=== PATIENT | male | born 1995 | race Caucasian/White ===

== ENCOUNTER 2017-05-03 17:21 | Emergency (ER) | payer OTHER ==
--- NOTE | 2017-05-03 18:12 | EDPHY ---
H & P Stated Complaint: Abcess buttock x 2 days Time Seen by Provider: 05/03/17 18:11 HPI/ROS: HPI: This is a 21-year-old male presents with Chief Complaint: Abscess buttock x 2 days Location: Left buttock Quality: Abscess Duration: 2 days Signs and Symptoms: No fever, no rectal pain, no rectal bleeding, no blood in stool Timing: Rapidly worsening Severity: Moderate Context: Patient reports that he has had 2 abscesses in the past but none recently and noticed an abscess form on his left buttock 2 days ago that has rapidly worsened and now causes pain when he sits down. He denies any fever/ blood in the stool/rectal bleeding/difficulty defecating. Denies any history of MRSA. He tried applying warm compresses once yesterday with no relief. Modifying Factors: Comment: ROS: see HPI Constitutional: No fever, no chills, no weight loss Eyes: No blurred vision Respiratory: No shortness of breath, no cough Cardiovascular: No chest pain Gastrointestinal: No nausea, no vomiting, no diarrhea Genitourinary: No dysuria Extremities: No myalgias Neurologic: No weakness, no numbness Skin: No rashes Hematologic: No bruising, no bleeding MEDICAL/SURGICAL/SOCIAL HISTORY: Medical history: Generally healthy. Does not take any regular medications. Surgical history: Denies Social history: in a relationship CONSTITUTIONAL: awake and alert, no obvious distress HEENT: Atraumatic and normocephalic, PERRL, EOMI. Tympanic membranes clear. Oropharynx clear, no exudate and moist pink mucosa. Airway patent. No lymphadenopathy. No meningismus. Cardiovascular: Normal S1/S2, regular rate, regular rhythm, without murmur rub or gallop. PULMONARY/CHEST: Symmetrical and nontender. Clear to auscultation bilaterally. Good air movement. No accessory muscle usage. ABDOMEN: Soft, nondistended, nontender, no rebound, no guarding, no peritoneal signs, no masses or organomegaly. No CVAT. RECTAL: 6 cm fluctuant mildly erythematous abscess located on the inferior left buttock near the perineum. EXTREMITIES: 2/2 pulses, strength 5/5, no deformities, no clubbing, no cyanosis or edema. NEUROLOGICAL: no focal neuro deficits. GCS 15. SKIN: Warm and dry, no erythema. no rash. Good capillary refill. Source: Patient Exam Limitations: No limitations - Personal History Current Tetanus Diphtheria and Acellular Pertussis (TDAP): Yes - Social History Smoking Status: Never smoked Constitutional: Initial Vital Signs Temperature (C) 37.2 C 05/03/17 17:22 Heart Rate 74 05/03/17 17:22 Respiratory Rate 16 05/03/17 17:22 Blood Pressure 140/77 H 05/03/17 17:22 O2 Sat (%) 96 05/03/17 17:22 O2 Delivery Mode Room Air Allergies/Adverse Reactions: No Known Allergies Allergy (Unverified 05/03/17 17:25) Home Medications: Medication Instructions Recorded Clindamycin HCl [Clindamycin] 300 mg PO TID #21 cap 05/03/17 Medical Decision Making Procedures: Procedure: Abscess drainage. The patient's abscess was located on the left buttock. The area was anesthetized in the usual fashion. I obtained verbal consent from the patient to drain the abscess who was informed about the possibility of bleeding and pain. The abscess was incised with a scalpel and a 10 Ml amount of purulent drainage was expressed. I irrigated the wound and placed some 0.5 inch iodoform packing. The patient tolerated the procedure well. The procedure was performed by myself. ED Course/Re-evaluation: No history MRSA No signs of fistula/rectal involvement I and D; packing; Sitz baths; clindamycin Differential Diagnosis: Differential diagnosis includes abscess, cellulitis, perirectal fistula, MRSA infection. Departure - Departure Disposition: Home, Routine, Self-Care Clinical Impression: Abscess of left buttock Condition: Good Instructions: Abscess (ED), Warm Compress or Soak (ED) Additional Instructions: Keep the packing in place for 48 hours. After 48 hours, you may remove the packing; wash the site daily with mild soap and water; then pat dry. Warm Sitz past 2 to 3 times a day for 20-30 minutes at a time. Take all antibiotics until complete. Referrals: [facility],. [Clinic] - As per Instructions Prescriptions: Clindamycin HCl [Clindamycin] 300 mg PO TID #21 cap
[2017-05-03] MEDS ORDERED: CLINDAMYCIN 150 MG CAP PO ONE (18:24)
[2017-05-03 18:52] VITALS: BP 112/66; PULSE 70; RESP 18; TEMP 98.2; O2SAT 97
== END 2017-05-03 18:52 | disposition home or self-care (01) ==
PROC: 0H98XZZ Drainage of Buttock Skin, External Approach (ICD-10-PCS; principal; 2017-05-03)
DX: L02.31 Cutaneous abscess of buttock (principal)

== ENCOUNTER 2017-07-11 19:11 | Emergency (ER) | payer OTHER ==
--- NOTE | 2017-07-11 20:17 | EDPHY ---
General Narrative: CHIEF COMPLAINT: "Butt abscess" HISTORY OF PRESENT ILLNESS: Patient presents with complaints of "butt abscess." He complains of abscess to the left buttock, near the anus. This been present for 2 days. This actually been present for over 2 months. It fluctuates in size, pain and drainage. He has never had any abdominal pain, fever, stool draining from it. He has been seen here in April with aspiration and drainage. He was referred to primary care physician and general surgeon. He has had difficulty finding follow-up for this thus far. The medication previously prescribed did help his symptoms. He had near resolution with symptoms returning couple weeks ago. They were mild until 2 days ago. Now rated as severe pain. No difficulty with bowel movement. No constipation or diarrhea. No history of Crohn's or inflammatory bowel disease. No history of pilonidal cyst or hidradenitis. No other associated complaints or modifying factors. REVIEW OF SYSTEMS: Ten systems reviewed and are negative unless otherwise noted in the HPI PCP: None. Currently trying to establish SPECIALISTS: None PAST MEDICAL HISTORY: Abscesses PAST SURGICAL HISTORY: None SOCIAL HISTORY: Nonsmoker. Occasional alcohol. Occasional marijuana FAMILY HISTORY: Noncontributory EXAMINATION General Appearance: Alert, no distress Head: normocephalic, atraumatic Eyes: Pupils equal and round, no conjunctival pallor or injection Respiratory: Lungs are clear. No retractions or distress. Cardiovascular: Regular rate. Good signs of perfusion Gastrointestinal: Abdomen is soft and nontender. No tympany rigidity. Back: non-tender, no bony abnormalities Neurological: A&O, nonfocal, normal gait Skin: Warm and dry. There is a 2.5 cm area of fluctuance on the left buttock, medially approximately 2 cm from the anal verge. This is at the 9 o'clock position. There is mild spontaneous purulent drainage. No fecal material present. No surrounding cellulitis. There does appear to be cephalad tracking. Extremities: Nontender, no pedal edema Psychiatric: Mood and affect normal DIFFERENTIAL DIAGNOSES: Including but not limited to pilonidal cyst, hidradenitis, perirectal abscess, perianal abscess MDM: 8:05 p.m. Left buttock abscess that is approximately 2 cm from the anal verge. This is at the 9:00 position. It is fluctuant. I did administer lidocaine to evaluate further and there was spontaneous drainage from this. Do not feel the need to further incise and drain this particularly given the proximity to the anus. He has no abdominal pain. He has no fecal material from the abscess. I will treat him for abscess and refer him to general surgeon and to the on-call primary care physician. 8:15 p.m. I re-evaluated the patient. I irrigated the area of anesthetize abscess with sterile saline. I did not incise the area. Given that this is spontaneously draining and given the proximity to the anal verge, I did not feel that incision was safe without CT scan. The patient did not want to pursue CT scan at this time. I have low clinical suspicion of perirectal or perianal assist does appear to track cephalad, more likely suggesting pilonidal cyst. I applied a dressing after irrigation of the wound. I will place him on antibiotic therapy. I will refer him to General surgery and primary care physician for further evaluation. We discussed ED precautions and he is comfortable this plan and discharged home stable condition. PROCEDURE: Incision and Drainage Consent: Verbal Location: Left buttock, medial Length: 2.5 cm Complexity: Simple Anesthesia: Local. 1% lidocaine with epinephrine. 5 mL Procedure description: After verbal consent and good anesthesia, the area was irrigated with sterile saline. There was no incision made. There was approximately 5 mL as of purulence expressed. No fecal material expressed. Tolerated well. Sterile dressing in place. Expressed: 5 mL purulent. No fecal material. Wound care: Daily as discussed Follow-up: 48 hr wound check. Primary care physician and general surgeon for definitive care SUPERVISION: Patient was independently examined, but I discussed the case with my secondary supervising physician Dr. Mcclure - History Smoking Status: Never smoked - Objective Vital Signs: Initial Vital Signs Temperature (C) 98.8 F 07/11/17 19:31 Heart Rate 108 H 07/11/17 19:31 Respiratory Rate 16 07/11/17 19:31 Blood Pressure 113/61 07/11/17 19:31 O2 Sat (%) 94 07/11/17 19:31 O2 Delivery Mode Room Air Allergies/Adverse Reactions: No Known Allergies Allergy (Unverified 05/03/17 17:25) Home Medications: Medication Instructions Recorded Sulfamethox/Tmp 800/160 mg 1 tab PO BID 10 Days tab 07/11/17 [Bactrim Ds] oxyCODONE HCL/ACETAMINOPHEN 1 each PO Q4-6PRN PRN #7 tablet 07/11/17 [Percocet 5-325 mg Tablet] Departure - Departure Disposition: Home, Routine, Self-Care Clinical Impression: Left buttock abscess Condition: Good Instructions: Pilonidal Cyst (ED), Abscess (ED) Additional Instructions: 1. Medications as prescribed to completion 2. Daily wound care as discussed including Sitz bath 3. Contact the on-call primary care physician for outpatient follow-up 4. Contact the on-call general surgeon for definitive care Five. ED precautions as discussed Referrals: Sara Sanderson MD [Medical Doctor] - As per Instructions Nito Long MD [Medical Doctor] - As per Instructions Prescriptions: oxyCODONE HCL/ACETAMINOPHEN [Percocet 5-325 mg Tablet] 1 each PO Q4-6PRN PRN #7 tablet PRN Reason: Pain, Breakthrough Sulfamethox/Tmp 800/160 mg [Bactrim Ds] 1 tab PO BID 10 Days tab
[2017-07-11 20:34] VITALS: BP 123/63; PULSE 86; RESP 18; TEMP 98.6; O2SAT 93
== END 2017-07-11 20:33 | disposition home or self-care (01) ==
DX: L02.31 Cutaneous abscess of buttock (principal)

== ENCOUNTER 2017-07-27 12:33 | Emergency (ER) | payer OTHER ==
[2017-07-27 12:43] VITALS: O2SAT 97
[2017-07-27] MEDS ORDERED: FLUORESCEIN SODIUM 1 MG STRIP OP ONE (13:52)
[2017-07-27] MEDS ORDERED: PROPARACAINE 0.5% 15 ML OPHT DROP ONE (13:52)
[2017-07-27 14:23] VITALS: BP 114/60
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
[2017-07-27] MEDS ORDERED: BUFFERED SALT EYE WASH,STERILE 118 ML OPHT.BTL ONE (14:56)
[2017-07-27 15:30] VITALS: PULSE 60; RESP 15; TEMP 98.4
--- NOTE | 2017-07-27 15:30 | GCON ---
[f rep st] CONSULTATION DATE OF CONSULTATION: 07/27/2017 CHIEF COMPLAINT: Left lower eyelid laceration. HISTORY OF PRESENT ILLNESS: This is an otherwise healthy 21-year-old who was playing around with his dog earlier this afternoon and non provoked was bit was by his dog in the left lower eyelid as well as upper left forehead. He immediately came to the emergency room. He was seen in the emergency andres where a slit lamp and eye exam were done and no visual acuity deficits were noted, see their docume ntation for that. Upon exam, he had a small laceration of the left lower eyelid through the tarsus b ut not involving the conjunctiva or beyond the lower eyelid. PAST MEDICAL HISTORY: None. ALLERGIES: No known drug allergies. PAST SURGICAL HISTORY: Noncontributory. PHYSICAL EXAMINATION: VITAL SIGNS: His temperature is 36.8, heart rate is 88, respiratory rate was 16, blood pressure was 113/68. GENERAL: He was alert and oriented in no acute distress. HEENT: He has a small 1 cm laceration involving the left lower eyelid, both the anterior and middle lamella. T his wound was previously cleaned up in the emergency room. The rest of the exam was deferred. PROCEDURE: The area was prepped and draped in the usual sterile fashion and alcohol was used to emanuel n up the area. 0.5 mL of 1% lidocaine with epinephrine was used to numb up the area. The area was w ashed out with BSSO saline. One 6-0 fast absorbing gut was used to reapproximate the tarsus and then one 6-0 Prolene was used to reapproximate the lower eyelid. The patient tolerated the procedure wel l. He was again washed out with BSSO. The laceration measured approximately 1 cm upon final closure . ASSESSMENT: This is a 21-year-old with a left lower eyelid laceration. PLAN: 1. BSSO t.i.d. to the left eye. 2. May clean with soap and water but do not rub. 3. I gave him my office contact number. The Prolene stitches will need to be removed in 5-6 days. 4. Dispo per ED. /[id number]/MODL
== END 2017-07-27 15:29 | disposition home or self-care (01) ==
PROC: 08QRXZZ Repair Left Lower Eyelid, External Approach (ICD-10-PCS; principal; 2017-07-27)
DX: S01.112A Laceration without foreign body of left eyelid and periocular area, initial encounter (principal); W54.0XXA Bitten by dog, initial encounter; Y92.009 Unspecified place in unspecified non-institutional (private) residence as the place of occurrence of the external cause; Y99.8 Other external cause status; Y93.89 Activity, other specified